=== PATIENT | female | born 1930 | race Caucasian/White ===

== ENCOUNTER → 2016-05-27 16:48 | Outpatient (CLI) | payer MEDICARE ==
[2014-06-27 06:29] VITALS: BMI 25.0
[~2016-05-27 16:48] MED LIST: KRILL OIL 1,001 EAC1 PO; MIRALAX527 GM PO; NORVASC2.5 MG PO; TIROSINT88 MCG PO
== END | disposition home or self-care (01) ==
LOC: D.MAMMO 11:30
DX: Z12.31 Encounter for screening mammogram for malignant neoplasm of breast (principal)

== ENCOUNTER 2016-06-20 08:53 | Emergency (ER) | payer MEDICARE, OTHER ==
[2014-06-27 06:29] VITALS: BMI 25.0
[2016-06-20 09:51] LABS: BASOPHILS 0.5 % (0.0-2.0); EOSINOPHILS 3.2 % (0-7); HEMATOCRIT 36.6 % (36.0-48.0); HEMOGLOBIN 12.2 g/dL (12-16); IMMATURE GRANULOCYTES 0.3 % (0-5); LYMPHOCYTES 17.4 % (15-50); MCH 30.3 pg (26.0-34.0); MCHC 33.3 g/dL (31.0-37.0); MEAN PLATELET VOLUME 9.1 fL (7.4-10.4); MONOCYTES 7.1 % (2-11); NEUTROPHILS 71.5 % (40-80); PLATELET COUNT 226 10x3/uL (130-400); RBC 4.02 10x6/uL (4.00-5.40); RDW 12.9 % (11.5-14.5); WBC 7.7 10x3/uL (4.8-10.8)
[2016-06-20 10:00] LABS: INR 0.99 (0.85-1.17); PROTIME 12.9 SECONDS (11.6-15.0)
[2016-06-20 10:01] LABS: APTT 32.2 SECONDS (22.8-39.4)
[2016-06-20 10:06] LABS: ALBUMIN 4.1 g/dL (3.4-5.0); ALKALINE PHOSPHATASE 100 U/L (46-116); ALT (SGPT) 20 U/L (10-68); BILIRUBIN - TOTAL 0.44 mg/dL (0.2-1.3); CALC OSMOLALITY 271 mosm/kg (275-300); CALCIUM 9.2 mg/dL (8.5-10.1); CARBON DIOXIDE 25.1 mmol/L (21.0-32.0); CHLORIDE - SERUM 100 mmol/L (98-107); CREATININE - SERUM 0.7 mg/dL (0.6-1.3); GLUCOSE 118 mg/dL (74-106); POTASSIUM - SERUM 4.4 mmol/L (3.5-5.1); PROTEIN - SERUM 7.1 g/dL (6.4-8.2); SODIUM 134 mmol/L (136-145); UREA NITROGEN 21 mg/dL (7-18); eGFR NON AFRICAN AMERICAN 84 mL/min (90-120)
[2016-06-20 11:37] LABS: APPEARANCE TURBID (CLEAR); BACTERIA FEW /hpf (NONE SEEN); BILIRUBIN NEGATIVE (NEGATIVE); COLOR RED (YELLOW); EPITHELIAL CELLS RARE /hpf (0-5); GLUCOSE NEGATIVE (NEGATIVE); KETONE NEGATIVE (NEGATIVE); LEUKOCYTE ESTERASE 1+ (NEGATIVE); MUCUS <1+ /lpf (NONE SEEN); NITRITE NEGATIVE (NEGATIVE); PROTEIN 2+ mg/dL (NEGATIVE); RED CELLS - URINE >50 /hpf (0-5); UROBILINOGEN NORMAL (NORMAL)
== END 2016-06-20 13:32 | disposition home or self-care (01) ==
LOC: D.ER 08:53
PROVIDERS: Emergency Medicine
DX: R31.9 Hematuria, unspecified (principal); E03.9 Hypothyroidism, unspecified

== ENCOUNTER 2017-07-31 19:57 | Outpatient (CLI) | payer MEDICARE, OTHER ==
[~2017-07-31] VITALS: Ht 165.1 cm; Wt 59.7 kg
--- NOTE | ~2017-07-31 | HEMODYNAMI ---
PATIENT:GASTON CEE MEDICAL RECORD: [id number] : 30 [id number] ADMISSION DATE: 07/31/17 Generatedon:08/01/201712:08 Patient name: GASTON CEE Patient #: [id number] SSN: : 1930 Date of study: 08/01/2017 Page: Of Hemodynamic Procedure Report Patient Data Patient Demographics Procedure consent was obtained First Name: GASTON Gender: Female Last Name: JAYE : 1930 [facility] Initial: W Age: 86 year(s) Patient #: [id number] Race: Unknown Additional ID: [id number] Contact details Address: [address] [place] [address] State: [place] City: [facility] Zip code: [address] Past Medical History Allergies: No known allergies Admission Admission Data Admission Date: 07/31/2017 Admission Time: 22:04 Room #: D.2123 Lab Results Lab Result Date: 08/01/2017 Lab Result Time: 0:00 Biochemistry Name Units Result Min Max BUN mg/dl 21 --(----)-* 7 18 Creatinine mg/dl 0.7 --(*---)-- 0.6 1.3 CBC Name Units Result Min Max Hemoglobin g/dl 12 *-(----)-- 13.5 17.5 Procedure Procedure Types Cath Procedure Diagnostic Procedure [facility] w/Coronaries Sedation Charges Moderate Sedation up to 15 minutes PCI Procedure Coronary Stent Coronary Stent Initial Procedure Description Procedure Date Procedure Date: 08/01/2017 Procedure Start Time: 11:37 Procedure End Time: 12:05 Procedure Staff Name Function Danny Tolliver MD Performing Physician Aviva Vincent RT Shift Commander Jose Roland RT Scrub Ryan Helm RN Nurse Procedure Data Cath Procedure Fluoroscopy Diagnostic fluoroscopy Total fluoroscopy Time: 6.6 time: 6.6 min min Diagnostic fluoroscopy Total fluoroscopy dose: 762 dose: 762 mGy mGy Contrast Material Contrast Material Type Amount (ml) Isovue 300 142 Entry Location Entry Primary Successful Side Size Upsize Upsize Entry Closure Succes sful Closure Location (Fr) 1 (Fr) 2 (Fr) Remarks Device Remarks Femoral Right 5 Fr 6 Fr Exoseal artery Short Estimated blood loss: 10 ml Diagnostic catheters Device Type Used For End Catheter Placement MULTIPACK JL 4.0 5Fr Procedure catheter MULTIPACK 3DRC 5Fr Procedure catheter MULTIPACK Pigtail 5 Fr Procedure catheter Procedure Complications No complications Procedure Medications Medication Administration Route Dosage Oxygen etCO2 Nasal cannula 2 l/min Heparin Flush Bag added to field 2 bags (1000units/500ml NS) 0.9% NaCl I.V. 100 ml/hr Fentanyl I.V. 50 mcg Versed I.V. 1 mg Fentanyl I.V. 50 mcg Versed I.V. 1 mg Heparin Bolus I.V. 4000 units Integrilin (Bolus I.V. 5 ml 2mg/ml) Integrilin (Bolus wasted 5 ml 2mg/ml) Plavix P.O. 75 mg Hemodynamics Rest HGB: 12 (g/dl) Heart Rate: 93 (bpm) Pressure Samples Time Site Value (mmHg) Purpose Heart Use Rate(bpm) 11:43 LV 135/-9,18 Snapshot 95 11:43 AO 154/63(100) Pullback 96 11:43 LV 131/19,20 Pullback 96 Gradients Valve Time Site 1 Site 2 Mean SEP/DFP Peak To Heart Use (mmHg) (sec/min) Peak Rate (mmHg) (bpm) Aortic 11:43 LV AO 0 96 131/19,20 154/63(100) Calculations Valve P-P Mean Valve Index Valve Source Name Gradient Area Flow (cm2) Aortic 0 0 Snapshots Pre Cath Intra NCS Post Cath Vital Signs Time Heart Resp SPO2 etCO2 NIBP (mmHg) Rhythm Pain Sedation Rate (ipm) (%) (mmHg) Status Level (bpm) 11:27:41 93 17 96 0 158/82(136) NSR 0 (11) 10(A) , No pain 11:32:22 90 18 96 33.8 142/77(109) NSR 0 (11) 10(A) , No pain 11:37:02 89 14 97 0 136/65(113) NSR 0 (11) 9(A) , No pain 11:41:39 94 14 96 0 120/74(96) NSR 0 (11) 9(A) , No pain 11:46:12 97 14 97 10.5 122/74(98) NSR 0 (11) 9(A) , No pain 11:50:50 94 16 98 19.5 127/86(96) NSR 0 (11) 9(A) , No pain 11:55:51 93 15 96 27 146/77(112) NSR 0 (11) 9(A) , No pain 12:00:30 93 15 98 0 147/76(110) NSR 0 (11) 9(A) , No pain 12:01:41 93 15 98 33 144/76(109) NSR 0 (11) 9(A) , No pain Medications Time Medication Route Dose Verified Delivered Reason Notes Effectiveness by by 11:31:44 Oxygen etCO2 2 Danny Davis Per physician Nasal l/min [facility] Hector Helm RN cannula 11:32:00 Heparin Flush added 2 Danny Davis used for Bag to bags [facility] Hector Helm RN procedure (1000units/500ml field NS) 11:32:09 0.9% NaCl I.V. 100 Danny Davis Per physician ml/hr St Hector Helm RN, MD 11:32:54 Fentanyl I.V. 50 Danny Davis for sedation mcg St Hector Helm RN, MD 11:33:00 Versed I.V. 1 mg Danny Davis for sedation St Hector Helm RN, MD 11:45:32 Fentanyl I.V. 50 Danny Davis for sedation mcg [facility] Hector Helm RN, MD 11:45:35 Versed I.V. 1 mg Danny Davis for sedation St Hector Helm RN, MD 11:45:45 Heparin Bolus I.V. [address] units [facility] Hector Helm RN anticoagulation 11:45:56 Integrilin I.V. 5 ml Danny Davis for (Bolus 2mg/ml) [facility] Hector Helm RN antiplatelet therapy 11:46:01 Integrilin wasted 5 ml Danny Davis for (Bolus 2mg/ml) [facility] Hector Helm RN antiplatelet therapy 12:00:58 Plavix P.O. [address] Hector Helm RN antiplatelet therapy Procedure Log Time Note 11:02:44 Informed consent obtained and on chart 11:09:24 Ryan Helm RN sent for patient. Start room use. 11:09:25 Time tracking: Call back (After hours or weekends) 11:09:31 Plan of Care:Hemodynamics will remain stable., Cardiac rhythm will remain stable., Comfort level will be maintained., Respiratory function will remain adequate., Patient/ family verbilizes understanding of procedure., Procedure tolerated without complication., Recovers from procedure without complications.. 11:16:48 Lab Result : Creatinine 0.7 mg/dl 11:16:48 Lab Result : BUN 21 mg/dl 11:16:48 Lab Result : Hemoglobin 12 g/dl 11:19:07 Patient allergic to No known allergies 11:19:19 H&P Date Dictated: 07/31/2017 Within 30 days and on chart.. 11:20:12 Patient received from Med II to CCL 1 Alert and oriented. Tansferred to table in Supine position. 11:20:14 Warm blankets applied, and beena hugger turned on for patient comfort. 11:20:14 Correct patient and procedure confirmed by team. 11:20:15 ECG and BP/O2 sat monitors applied to patient. 11:26:52 Vital chart was started 11:30:47 Baseline sample Acquired. 11:30:51 Rhythm: sinus rhythm 11:30:52 Full Disclosure recording started 11:30:53 Pre-procedure instructions explained to patient. 11:30:54 Pre-op teaching completed and patient verbalized understanding. 11:30:56 Family in patients room. 11:30:57 Patient NPO since Midnight. 11:31:06 Is the patient allergic to Iodine/contrast media? No. 11:31:13 Is patient on blood thinner?Yes 11:31:18 ACC The patient was administered the following blood thiners within the last 24 hours: ACCPlavix 11:31:23 Patient diabetic? No. 11:31:30 Snore? Yes 11:31:33 Previous problem with sedation/anesthesia? No ? 11:31:36 Sleep apnea? No 11:31:38 Deviated septum? No 11:31:38 Opens mouth fully? Yes 11:31:40 Sticks out tongue? Yes 11:31:42 Airway obstruction? No ? 11:31:44 Oxygen 2 l/min etCO2 Nasal cannula was administered by Ryan Helm RN; Per physician; 11:31:45 Dentures? No ? 11:31:49 Pre procedure: right dorsailis pedis pulse 2+ Normal; easily identifiable; not easily obliterated 11:31:55 Patient pain scale 0/10 ?. 11:32:00 Heparin Flush Bag (1000units/500ml NS) 2 bags added to field was administered by Ryan Helm RN; used for procedure; 11:32:04 IV patent on arrival in right wrist with 0.9% NaCl at [facility]. 11:32:07 Lab results completed and on chart. 11:32:09 0.9% NaCl 100 ml/hr I.V. was administered by Ryan Helm RN; Per physician; 11:32:10 Right groin area was prepped with chlora-prep and draped in sterile fashion 11:32:11 Alarms reviewed by R. N. 11:32:12 Sharps counted by scrub and verified by R.N. 11:32:13 --------ALL STOP TIME OUT------ 11:32:14 Final Timeout: patient, procedure, and site verified with staff and physician. All members of the team are in agreement. 11:32:15 Right groin site verified by team. 11:32:19 Physical assessment completed. ASA score P 2 - A patient with mild systemic disease as per Danny Tolliver MD. 11:32:25 Sedation plan: IV Moderate Sedation Medication:Versed, Fentanyl 11:32:31 Use device set Femoral Dx 11:32:33 ACIST Syringe (64771) opened to sterile field. 11:32:33 Bag Decanter () opened to sterile field. 11:32:36 ACIST Hand Control (27009) opened to sterile field. 11:32:37 ACIST Manifold (47719) opened to sterile field. 11:32:39 Tegaderm 4 x 4 (1626W) opened to sterile field. 11:32:42 Medline Cath Pack ([id number]) opened to sterile field. 11:32:42 DIAGNOSTIC WIRE .035 260cm J wire (285983) opened to sterile field. 11:32:44 PERCUTANEOUS ENTRY 19GA needle opened to sterile field. 11:32:45 DIAGNOSTIC Multipack 5Fr catheter set (SY0461) opened to sterile field. 11:32:54 Fentanyl 50 mcg I.V. was administered by Ryan Helm RN; for sedation; 11:33:00 Versed 1 mg I.V. was administered by Ryan Helm RN; for sedation; 11:36:57 Procedure started. 11:37:02 Local anesthetic to right femoral artery with Lidocaine 2% by Danny Tolliver MD.INITIAL ACCESS ONLY 11:37:03 Zero performed for pressure channel P1 11:37:08 Zero performed for pressure channel P1 11:37:21 SHEATH Prelude 5Fr 0.035 (NKW-5S-91-035) opened to sterile field. 11:37:22 A 5 Fr sheath was inserted into the Right Femoral artery 11:37:36 A MULTIPACK JL 4.0 5Fr catheter was advanced over the wire and used for Procedure. 11:38:55 LCA angiography performed. 11:39:56 Catheter removed. 11:40:00 A MULTIPACK 3DRC 5Fr catheter was advanced over the wire and used for Procedure. 11:40:57 RCA angiography performed. 11:41:28 INFLATOR Merit BasixCompak (DI4391) opened to sterile field. 11:41:32 SHEATH 6FR [place] (OMP380) opened to sterile field. 11:41:48 WHISPER 300cm guide wire ([id number]) opened to sterile field. 11:42:02 Catheter removed. 11:42:17 A MULTIPACK Pigtail 5 Fr catheter was advanced over the wire and used for Procedure. 11:42:37 Injector settings: Ml/sec: 10, Volume: 20, 11:42:46 LV gram done using PELLETIER 11:43:04 LV hemodynamics recorded. 11:43:19 EF : 50 % 11:43:22 Catheter removed. 11:43:33 GUIDE 6FR HS I SH catheter ([id number]) opened to sterile field. 11:43:53 Sheath upsized to a 6 Fr Short. 11:45:19 6 Fr HS1 SH guide catheter was inserted over the wire 11:45:32 Fentanyl 50 mcg I.V. was administered by Ryan Helm RN; for sedation; 11:45:35 Versed 1 mg I.V. was administered by Ryan Helm RN; for sedation; 11:45:38 WHISPER 300 wire advanced. 11:45:45 Heparin Bolus 4000 units I.V. was administered by Ryan Helm RN; for anticoagulation; 11:45:56 Integrilin (Bolus 2mg/ml) 5 ml I.V. was administered by Ryan Helm RN; for antiplatelet therapy; 11:46:01 Integrilin (Bolus 2mg/ml) 5 ml wasted was administered by Ryan Helm RN; for antiplatelet therapy; 11:50:16 Wire advanced across lesion. 11:51:29 Inflate balloon Inflation number: 1 A EMERGE OTW 2.5 x 15 balloon ([id number]) was prepped and advanced across the Mid RCA, then inflated to 10 LUBNA for 0:10 (min:sec). 11:52:12 Balloon removed over the wire. 11:54:29 Place stent Inflation Number: 2 A INTEGRITY OTW 3.0 X 12 stent ([id number]) was prepped and advanced across the Mid RCA. The stent was deployed at 14 LUBNA for 0:25 (min:sec). 11:55:09 Stent catheter was removed intact over wire. 11:57:47 Place stent Inflation Number: 1 A INTEGRITY RX 3.0 x 18 stent ([id number]) was prepped and advanced across the Prox RCA. The stent was deployed at 14 LUBNA for 0:25 (min:sec). 11:58:10 Stent catheter was removed intact over wire. 11:58:12 Wire removed. 11:58:12 Guide catheter removed. 11:58:32 EXOSEAL 6Fr (EX600) opened to sterile field. 11:58:53 Sheath removed intact; hemostasis achieved with Exoseal to the Right Femoral artery. 12:00:07 Procedure ended.(Physican Out) 12:00:58 Plavix 75 mg P.O. was administered by Ryan Helm RN; for antiplatelet therapy; 12:01:04 Fluoroscopy time 06.60 minutes. 12:01:07 Flurop Dose total: 762 12:01:07 Fluoroscopy dose: 762 mGy 12:01:12 Contrast amount:Isovue 300 142ml. 12:01:13 Sharps counted by scrub and verified by R.N. 12:01:18 Post-op/insertion site Right Femoral artery dressed using a 4 x 4 and Tegaderm. 12:01:22 Post right femoral artery:stable, soft, clean and dry 12::27 Post procedure: right dorsailis pedis pulse 2+ Normal; easily identifiable; not easily obliterated. 12:01:29 Post-procedure physical assessment completed. ASA score P 2 - A patient with mild systemic disease as per Danny Tolliver MD. 12:01:34 Post procedure rhythm: unchanged. 12:01:40 Estimated blood loss: 10 ml 12:01:42 Post procedure instruction explained to patient.Patient verbalizes understanding. 12:01:43 Patient needs reinforcement of post procedure teaching. 12:03:04 Procedure type changed to Cath procedure, Diagnostic procedure, LHC, LHC w/Coronaries, Sedation Charges, Moderate Sedation up to 15 minutes, PCI procedure, Coronary Stent, Coronary Stent Initial 12:05:03 Procedure and supply charges have been captured, reviewed, submitted and are correct. 12:05:05 Procedure Complication : No complications 12:05:08 Vital chart was stopped 12:05:10 See physician's report for complete and final results. 12:05:13 Report given to PCU. 12:05:16 Patient transfered to PCU with Bed. 12:05:18 Procedure ended. 12:05:18 Full Disclosure recording stopped 12:05:23 End room use (Document Last) Intervention Summary Intervention Notes Time ActionType Lesion and Equipment Action# Pressure Duration Attributes Used 11:51:29 Inflate Mid RCA EMERGE OTW 1 10 00:10 balloon 2.5 x 15 balloon ([id number]) 11:54:29 Place stent Mid RCA INTEGRITY 2 14 00:25 OTW 3.0 X 12 stent ([id number]) 11:57:47 Place stent Prox RCA INTEGRITY RX 1 14 00:25 3.0 x 18 stent ([id number]) Device Usage Item Name Manufacture Quantity Catalog Number Hospital Part Current Minimal Lot# / Charge Number Stock Stock Serial# Code ACIST Syringe Acist 1 33681 196502 655033 656985 20 (08381) Medical Systems Inc Bag Decanter Microtek 1 2001S 876730 46435 683955 5 () Medical Inc. ACIST Hand Acist 1 46105 938584 034523 589661 5 Control (83172) Medical Systems Inc ACIST Manifold Acist 1 54156 621771 680111 834781 5 (30020) Medical Systems Inc Tegaderm 4 x 4 3M 1 1626W 710356 158461 662725 5 (1626W) Medline Cath Cardinal 1 [id number] 724894 76254 567211 5 Pack Health ([id number]) DIAGNOSTIC WIRE [facility] Joe 1 170496 296617 087881 909296 30 .035 260cm J wire (699579) PERCUTANEOUS Cook Medical 1 C03225 494396 372538 5 ENTRY 19GA needle DIAGNOSTIC Cardinal 1 TM2234 654658 04365 679630 30 Multipack 5Fr Health catheter set (WV1786) MULTIPACK JL Cardinal 1 619436 5 4.0 5Fr Health catheter MULTIPACK 3DRC Cardinal 1 733290 5 5Fr catheter Health INFLATOR Merit Merit 1 FD6805 211612 780278 501827 15 [employer] Medical (FI1960) SHEATH 6FR Terumo 1 YIC699 939618 344698 720639 40 [place] (QZH310) WHISPER 300cm Kwan 1 [id number] 692195 612243 807098 5 guide wire Vascular ([id number]) MULTIPACK Cardinal 1 932281 5 Pigtail 5 Fr Health catheter GUIDE 6FR HS I Medtronic 1 [id number] 902149 14376 878496 1 SH catheter ([id number]) EMERGE OTW 2.5 [place] 1 [id number] 937133 262663 286980 5 [id number] x 15 balloon Scientific ([id number]) INTEGRITY OTW Medtronic 1 [id number] 890465 384139 6 [id number] 3.0 X 12 stent ([id number]) INTEGRITY RX Medtronic 1 [id number] 999825 559579 988329 5 [id number] 3.0 x 18 stent ([id number]) EXOSEAL 6Fr Cardinal 1 EX600 889712 997276 095908 10 (EX600) Health SHEATH Prelude Merit 1 DAN-9Q-30-035 513833 950683 242236 5 5Fr 0.035 Medical (ACC-9L-95-035) Signature Audit [place] Stage Time Signature Unsigned Intra-Procedure 08/01/2017 Aviva Vincent 12:07:57 PM RT(R) [place] [id number] [place] [id number]
--- NOTE | ~2017-07-31 | OP ---
PATIENT NAME: GASTON CEE MEDICAL RECORD: [id number] :30 LOCATION:D.M2 D.2123 ADMISSION DATE:07/31/17 SURGEON: IMER HAYS MD DATE OF OPERATION: 08/01/2017 PROCEDURE: Left heart catheterization, selective coronary angiography plus PTCA stent report, right femoral artery approach. CATHETERS: A 5-[place] sheath, 5/4 left and right Shirley, 5/4 pig. The procedure was well tolerated. The patient returned to charles, sheath removed. ExoSeal device was placed. FINDINGS: Left ventriculography in the 30-degree PELLETIER view shows inferior apical hypokinesis. Overall, LV function is preserved, EF 50%. CORONARY ANATOMY: 1. LEFT MAIN: Left main is free of disease. 2. LAD has luminal irregularities, no flow obstructive stenosis. 3. Circumflex: Luminal irregularities. 4. Right coronary artery shows a severe diffuse stenosis greater than 90% in its proximal portion. IMPRESSION: Infarct related artery, obviously the right coronary artery. PLAN: Intervention of this vessel momentarily. INTERVENTION: A 5-[place] sheath was exchanged for 6-[place] sheath. Hockey stick with side holes provided excellent guide catheter support followed by 300 cm Whisper wire was placed across the occlusion down this portion of the vessel. Pre-deployment balloon was a 2.5 x 15 mm Woods balloon up to 8 atmospheres. Stents were placed in following fashion; distally a 3.0 x 12 mm Integrity drug-eluting stent up to 14 atmospheres. Proximal stenosis was covered with 18 mm x 3.0 Integrity, again nondrug-eluting stent. Final injection shows excellent resolution of severe diffuse stenosis greater than 90% severe portion. ECTOR flow was 3 throughout the procedure. Integrilin and heparin was used during the case. Sheath closed with ExoSeal device. TRANSINT:[id number] Voice Confirmation ID: [id number] DOCUMENT ID: [id number] IMER HAYS MD at 1132 CC: [id number] DICTATION DATE: 08/01/17 1207 MEDICAL LAB TECHNICIAN: 08/01/17 1440 DIS IN 08/02/17 [place] [address]
--- NOTE | ~2017-07-31 | HP ---
PATIENT: GASTON CEE MEDICAL RECORD: [id number] ACCOUNT: [id number] LOCATION:[address] : 30 ADMISSION DATE: 07/31/17 HISTORY AND PHYSICAL EXAMINATION HISTORY OF PRESENT ILLNESS: An 86-year-old female with known history of coronary artery disease, status post intervention, this was over 5 years ago, [facility]. Has history of hypertension, hypothyroidism, dyslipidemia. Actually quite active, but having exertional angina progressive over the past week. Rest symptomatology yesterday. Elevated cardiac enzymes. Admitted for further evaluation. PAST MEDICAL HISTORY: 1. History of coronary artery disease. 2. Hypertension. 3. Hyperlipidemia. 4. Hypothyroid, on replacement. MEDICATIONS: Amlodipine 2.5 every day, Synthroid 88 mcg every day, krill oil b.i.d. ALLERGIES: None known. SOCIAL HISTORY: Nonsmoker, nondrinker. Easily takes care of her ADLs. Does work in the yard frequently. Walks her dog half a mile 3 times a week. REVIEW OF SYSTEMS: The patient reports easy bruising but reports no swollen glands. The patient reports no fever, no night sweats, no significant weight gain, no significant weight loss. No significant exercise tolerance. The patient reports no dry eyes, no irritation, no vision change. Patient reports no difficulty hearing and no ear pain. Patient reports no frequent nose bleeds or nose and sinus problems. Patient reports on arm pain on exertion. No shortness of breath while lying down. No history of heart murmur. Patient reports no cough, no wheezing or coughing up blood. Patient reports no abdominal pain, no vomiting. Normal appetite. No diarrhea and not vomiting blood. No nausea and no constipation. Patient reports no incontinence. No difficulty urinating. No hematuria. No increased frequency. Patient reports no muscle aches. No weakness, no arthralgias, no back pain. No swelling of the extremities. Patient reports no abnormal mole, no jaundice, no rashes. Reports no loss of consciousness. No weakness and no numbness. No seizures, dizziness, or headaches. The patient reports no depression, no sleep disturbance, feeling safe in a relationship and no alcohol abuse. Patient reports on fatigue. Reports no runny nose or sinus pressure. No itching, no hives, and no frequent sneezing. PHYSICAL EXAMINATION: GENERAL: Pleasant female, in no acute distress, appears younger than stated age. VITAL SIGNS: Blood pressure 153/66, pulse 94 and regular. HEENT: Normocephalic, atraumatic. NECK: No bruits noted. HEART: Regular. LUNGS: Lung lee are clear. ABDOMEN: Soft, nontender. EXTREMITIES: Pulses are 2+ with no edema. HISTORY AND PHYSICAL [id number] GASTON CEE NEUROLOGIC: Grossly intact. DIAGNOSTIC DATA: ECG shows inferolateral ST-T changes. IMPRESSION: [id number]-[id number] myocardial infarction, hypertension, and hyperlipidemia. PLAN: Plan for angiography, intervention based on above. TRANSINT:[id number] Voice Confirmation ID: [id number] DOCUMENT ID: [id number] IMER HAYS MD at 1208 CC: [id number] DICTATION DATE: 08/01/17901 COORDINATOR HOTELS: 08/01/17 1051 ADM IN [place] [id number] [place] [id number]
[2017-07-31 20:48] LABS: BASOPHILS 0.5 % (0-2); EOSINOPHILS 2.5 % (0-7); HEMATOCRIT 36.3 % (36.0-48.0); IMMATURE GRANULOCYTES 0.2 % (0-5); MCH 30.8 pg (26.0-34.0); MCHC 33.1 g/dL (31.0-37.0); MCV 93.1 fL (80.0-100.0); MEAN PLATELET VOLUME 8.7 fL (7.4-10.4); MONOCYTES 12.8 % (2-11); PLATELET COUNT 166 10x3/uL (130-400); RDW 13.1 % (11.5-14.5); WBC 4.1 10x3/uL (4.8-10.8)
[2017-07-31 21:01] LABS: ALBUMIN 3.5 g/dL (3.4-5.0); ALKALINE PHOSPHATASE 95 U/L (46-116); ALT (SGPT) 30 U/L (10-68); BILIRUBIN - TOTAL 0.22 mg/dL (0.2-1.3); CALC OSMOLALITY 272 mosm/kg (275-300); CALCIUM 8.4 mg/dL (8.5-10.1); CHLORIDE - SERUM 99 mmol/L (98-107); CREATININE - SERUM 0.9 mg/dL (0.6-1.3); GLUCOSE 131 mg/dL (74-106); POTASSIUM - SERUM 4.1 mmol/L (3.5-5.1); PROTEIN - SERUM 6.9 g/dL (6.4-8.2); SODIUM 134 mmol/L (136-145); UREA NITROGEN 21 mg/dL (7-18); eGFR NON AFRICAN AMERICAN 63 mL/min (90-120)
[2017-07-31 21:16] LABS: CKMB 0.5 U/L (0.0-3.6); CREATINE KINASE 104 UL (21-215); LIPASE 417 U/L (73-393); PRO BNP 478 pg/mL (0-450)
[2017-07-31 21:27] LABS: TROPONIN-I 0.089 ng/mL (0.000-0.060)
[2017-08-01] VITALS (9 sets, daily range): BP systolic 131–153; BP diastolic 60–80; Ht 165.1 cm; Wt 59.7 kg
[2017-08-01 09:31] LABS: BASOPHILS 0.3 % (0-2); EOSINOPHILS 2.1 % (0-7); HEMATOCRIT 35.3 % (36.0-48.0); HEMOGLOBIN 11.6 g/dL (12-16); LYMPHOCYTES 24.3 % (15-50); MCH 30.4 pg (26.0-34.0); MCHC 32.9 g/dL (31.0-37.0); MCV 92.7 fL (80.0-100.0); MEAN PLATELET VOLUME 9.1 fL (7.4-10.4); MONOCYTES 17.2 % (2-11); NEUTROPHILS 56.1 % (40-80); PLATELET COUNT 174 10x3/uL (130-400); RBC 3.81 10x6/uL (4.00-5.40); RDW 13.2 % (11.5-14.5); WBC 3.4 10x3/uL (4.8-10.8)
[2017-08-01 09:36] LABS: CALC OSMOLALITY 270 mosm/kg (275-300); CALCIUM 8.3 mg/dL (8.5-10.1); CARBON DIOXIDE 26.1 mmol/L (21.0-32.0); CHLORIDE - SERUM 100 mmol/L (98-107); CREATININE - SERUM 0.7 mg/dL (0.6-1.3); GLUCOSE 95 mg/dL (74-106); POTASSIUM - SERUM 4.2 mmol/L (3.5-5.1); SODIUM 135 mmol/L (136-145); UREA NITROGEN 16 mg/dL (7-18); eGFR NON AFRICAN AMERICAN 84 mL/min (90-120)
[2017-08-01] MEDS ORDERED: PLAVIX75 MG PO (16:24)
[2017-08-02] VITALS: BP 134/62
[2017-08-02 05:22] VITALS: BP 125/60
[2017-08-02 08:15] VITALS: BP 132/62
== END 2017-08-02 12:23 | disposition home or self-care (01) ==
LOC: OBSVTIME → D.ER 19:57 → OBSVTIME 22:04 → D.EDHOLD 22:04 → D.ER 22:04 → D.EDHOLD 22:19 → D.M2 22:19 → D.ER 08-02 12:23
PROVIDERS: Family Medicine; Internal Medicine Interventional Cardiology
DX: I21.4 Non-ST elevation (NSTEMI) myocardial infarction (principal); I25.10 Atherosclerotic heart disease of native coronary artery without angina pectoris; I10 Essential (primary) hypertension; E78.5 Hyperlipidemia, unspecified; E03.9 Hypothyroidism, unspecified; Z01.812 Encounter for preprocedural laboratory examination

== ENCOUNTER → 2017-10-28 13:10 | Outpatient (CLI) | payer MEDICARE, OTHER ==
[2017-08-01 00:13] VITALS: BMI 21.6
[~2017-10-28 13:10] MED LIST changes: +PLAVIX75 MG PO
== END | disposition home or self-care (01) ==
LOC: D.CT 13:10
DX: T14.8XXA Other injury of unspecified body region, initial encounter (principal); X58.XXXA Exposure to other specified factors, initial encounter; R55 Syncope and collapse